=== PATIENT | female | born 1995 | race Hispanic/Latino ===

== ENCOUNTER 2022-02-08 07:20 | Emergency (ER) | payer MEDICAID ==
[~2022-02-08] VITALS: Ht 157.5 cm; Wt 63.5 kg
[2022-02-08] MEDS ORDERED: DiphenhydrAMINE HCL 25 MG/10 ML ELIXIR UDCUP PO ONE (08:00)
[2022-02-08] MEDS ORDERED: SOLU-MEDROL 125MG VIAL IM ONE (08:00)
[2022-02-08] MEDS ORDERED: IPRATROPIUM/ALBUTEROL SULFATE 3 ML SOLUTION IH ONE (08:00)
[2022-02-08] MEDS ORDERED: BENZONATATE 100 MG CAPSULE PO ONE (08:00)
[2022-02-08] MEDS ORDERED: ALBUTEROL 0.083% 2.5 MG/3 ML INH IH ONE (08:30)
[2022-02-08 11:54] VITALS: BP 97/57
[2022-02-08] MEDS ORDERED: PRED20TA3 PO (12:07)
[2022-02-08] MEDS ORDERED: BENZ-39 PO (12:07)
[2022-02-08] MEDS ORDERED: CETI1TAB45 PO (12:07)
== END 2022-02-08 12:12 | disposition home or self-care (01) ==
LOC: EDH 07:20
DX: J45.901 Unspecified asthma with (acute) exacerbation (principal); J06.9 Acute upper respiratory infection, unspecified; Z20.822 Contact with and (suspected) exposure to COVID-19; Z88.8 Allergy status to other drugs, medicaments and biological substances; J45.909 Unspecified asthma, uncomplicated
CPT/HCPCS: 99285; 71045; 87635; 87804 ×2; 96372; 94640 ×2; C9803; J2930